=== PATIENT | female | born 1985 ===

== ENCOUNTER 2019-06-21 17:22 | Outpatient (REF) | payer SELFPAY ==
[2019-06-21 21:11] LABS: TSH 4.58 uIU/mL (0.36-3.74)
[2019-06-21 21:38] LABS: HCT 38.1 % (36.0-46.0); Mean Corp. HGB Concentration 34.1 g/dL (32.0-36.0); Mean Corpuscular Hemoglobin 34.6 pg (27.0-33.0); Mean Corpuscular Volume 101.3 fL (80-95); Mean Platelet Volume 9.6 fL (8.0-11.0); Platelet Count 285 x1000/uL (130-400); RBC 3.76 m/cumm (4.00-5.20); White Blood Cell Count 7.32 k/cumm (4.4-10.8)
[2019-06-24 11:54] LABS: FREE T4 0.87 ng/dL (0.76-1.46)
[2019-06-25 12:55] LABS: Thyrotropin Receptor Ab <1.00 IU/L
[2019-06-27 12:07] LABS: Thyroperoxidase Antibody 28 U/mL (<61)
== END 2019-06-21 17:42 ==
LOC: NCHCN 17:22
PROVIDERS: Visit Provider Nurse Practitioner Family
DX: R53.83 Other fatigue (principal); R94.6 Abnormal results of thyroid function studies; E66.3 Overweight
CPT/HCPCS: 85027; 84235; 84439; 84443; 86376

== ENCOUNTER 2019-10-25 15:02 | Outpatient (REF) | payer SELFPAY ==
[2019-10-25 21:38] LABS: TSH (W/Ref FT4) 1.57 uIU/mL (0.36-3.74)
== END 2019-10-25 15:22 ==
LOC: NCHCN 15:02
PROVIDERS: Visit Provider Nurse Practitioner Family
DX: R94.6 Abnormal results of thyroid function studies (principal)
CPT/HCPCS: 84443